=== PATIENT | female | born 1995 | race Hispanic/Latino ===

== ENCOUNTER 2019-05-18 21:27 | Emergency (ER) | payer SELFPAY ==
--- OUTSIDE RECORDS SUMMARY | 2019-05-18 21:30 | XMS REPORT ---
:1995 Author Organization [facility] t Address [address] [place] [address] [address] [place] [address] Care Team Providers Name Role Phone Unavailable Unavailable Unavailable Problems This patient has no known problems. Allergies, Adverse Reactions, Alerts This patient has no known allergies or adverse reactions. Medications This patient has no known medications.
--- NOTE | 2019-05-18 22:17 | EDPHYS ---
Physician Documentation [facility] Name: Tierney Bender Age: 23 yrs Sex: Female : 1995 Arrival Date: 05/18/2019 Time: 21:30 Bed Waiting Private MD: ED Physician Faustino Odell HPI: 05/17 22:13 This 23 yrs old Female presents to ER via Unassigned with complaints of Dental jmm pain. 22:13 Onset: The symptoms/episode began/occurred gradually, 2 day(s) ago. Duration: The jmm symptoms are continuous. Modifying factors: The symptoms are alleviated by nothing, the symptoms are aggravated by nothing. Associated signs and symptoms: Pertinent positives: swelling, Pertinent negatives: fever. This is a 23 year old female with no chronic medical conditions that presents to the ED with complaints of of right sided dental pain for the past 2 days. . 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 - Social history:: Smoking status: Patient denies any tobacco usage or history of. ROS: 22:13 Constitutional: Negative for fever, chills, and weight loss, Cardiovascular: Negative jmm for chest pain, palpitations, and edema, Respiratory: Negative for shortness of breath, cough, wheezing, and pleuritic chest pain. 22:13 ENT: Positive for dental pain. 22:13 All other systems are negative. Exam: 22:13 Constitutional: This is a well developed, well nourished patient who is awake, alert, jmm and in no acute distress. Head/Face: atraumatic. Eyes: EOMI, no conjunctival erythema appreciated 22:13 Neck: Trachea midline, Supple Chest/axilla: Normal chest wall appearance and motion. Cardiovascular: Regular rate and rhythm. No edema appreciated Respiratory: Normal respirations, no respiratory distress appreciated Abdomen/GI: Non distended, soft Back: Normal ROM Skin: General appearance color normal MS/ Extremity: Moves all extremities, no obvious deformities appreciated, no edema noted to the lower extremities Neuro: Awake and alert, normal gait Psych: Behavior is normal, Mood is normal, Patient is cooperative and pleasant 22:13 ENT: Dental exam: gum swelling, that is moderate, specifically in the lower right second bicuspid (#29) and lower right first molar (#30). 22:13 Neck: no submandibular swelling is appreciated. Vital Signs: 22:32 BP 125 / 77; Pulse 73; Resp 16 S; Temp 98.3(O); Pulse Ox 99% on R/A; Weight 63.5 kg bb (R); Pain 10/10; MDM: 22:12 [facility] 22:13 Data reviewed: vital signs, nurses notes. Counseling: I had a detailed discussion with [facility] the patient and/or guardian regarding: the historical points, exam findings, and any diagnostic results supporting the discharge/admit diagnosis, the need for outpatient follow up, to return to the emergency department if symptoms worsen or persist or if there are any questions or concerns that arise at home. ED course: Patient is alert and non toxic in appearance in the ED. I do not suspect ludwigs. Patient is advised to follow up with dentist and otherwise given strict return precautions. Patient understood and agrees with the plan of care. . Administered Medications: 22:19 Drug: Willard 5 mg-325 mg 1 tabs Route: PO; bb 22:31 Follow up: Response: Medication administered at discharge. Disposition: 05/18/19 22:16 Discharged to Home. Impression: Dental Pain. - Condition is Stable. - Discharge Instructions: Dental Pain. - Prescriptions for Peridex 0.12 % Mucous Membrane mouthwash - place 15 milliliter by MUCOUS MEMBRANE route 2 times per day after brushing teeth, swish in mouth for 30 seconds then spit out; 1 bottle. Amoxicillin 875 mg Oral Tablet - take 1 tablet by ORAL route every 12 hours for 10 days; 20 tablet. Ibuprofen 800 mg Oral Tablet - take 1 tablet by ORAL route every 8 hours As needed take with food; 30 tablet. - Medication Reconciliation Form, Thank You Letter, Antibiotic Education, Prescription Opioid Use form. - Follow up: Private Physician; When: 2 - 3 days; Reason: Recheck today's complaints, Continuance of care, Re-evaluation by your physician. Addendum: 05/21/2019 07:38 Co-signature as Attending Physician, Faustino Odell MD I agree with the assessment and c ward plan of care. Signatures: Faustino Odell MD MD cha Mickail, Joel, PA PA [facility] Fiordaliza Henry, RN RN bb Corrections: (The following items were deleted from the chart) 05/17 22:45 22:16 05/18/2019 22:16 Discharged to Home. Impression: Dental Pain. Condition is bb Stable. Forms are Medication Reconciliation Form, Thank You Letter, Antibiotic Education, Prescription Opioid Use. Follow up: Private Physician; When: 2 - 3 days; Reason: Recheck today's complaints, Continuance of care, Re-evaluation by your physician. [facility] 22:45 22:45 05/18/2019 22:16 Discharged to Home. Impression: Dental Pain. Condition is bb Stable. Discharge Instructions: Dental Pain. Prescriptions for Peridex 0.12 % Mucous Membrane mouthwash - place 15 milliliter by MUCOUS MEMBRANE route 2 times per day after brushing teeth, swish in mouth for 30 seconds then spit out; 1 bottle, Amoxicillin 875 mg Oral Tablet - take 1 tablet by ORAL route every 12 hours for 10 days; 20 tablet, Ibuprofen 800 mg Oral Tablet - take 1 tablet by ORAL route every 8 hours As needed take with food; 30 tablet. and Forms are Medication Reconciliation Form, Thank You Letter, Antibiotic Education, Prescription Opioid Use. Follow up: Private Physician; When: 2 - 3 days; Reason: Recheck today's complaints, Continuance of care, Re-evaluation by your physician. bb
[2019-05-18] MEDS ORDERED: HYDROCODONE/APAP 5/325 MG TAB ONE (22:27)
--- NOTE | 2019-05-18 22:46 | ER ---
Nurse's Notes [facility] Name: Tierney Bender Age: 23 yrs Sex: Female : 1995 Arrival Date: 05/18/2019 Time: 21:30 Bed Waiting Private MD: Diagnosis: Dental Pain Presentation: 05/17 22:32 Chief complaint: Patient states: pt is Hungarian speaking only used language line pt bb reports that it is her molars right lower jaw that is hurting 11/16 x 2 days. Coronavirus screen: Proceed with normal triage. Ebola Screen: No symptoms or risks identified at this time. Initial Sepsis Screen: Does the patient meet any 2 criteria? No. Patient's initial sepsis screen is negative. Does the patient have a suspected source of infection? No. Patient's initial sepsis screen is negative. Risk Assessment: Do you want to hurt yourself or someone else? Patient reports no desire to harm self or others. Onset of symptoms was May 16, 2019. 22:32 Method Of Arrival: Ambulatory 22:32 Acuity: MERVAT 5 bb 22:35 Note pt seen in triage by provider and discharged. 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 - Social history:: Smoking status: Patient denies any tobacco usage or history of. Screenin:44 Abuse screen: Denies threats or abuse. Nutritional screening: No deficits noted. bb Tuberculosis screening: No symptoms or risk factors identified. Fall Risk None identified. Assessment: 22:36 General: Appears in no apparent distress. Behavior is calm, cooperative. Pain: bb Complains of pain in lower right first molar (#30) and lower right second bicuspid (#29). Neuro: No deficits noted. Cardiovascular: No deficits noted. Respiratory: Airway is patent Respiratory effort is even, unlabored. GI: No signs and/or symptoms were reported involving the gastrointestinal system. EENT: Reports pain right lower jaw. Derm: Skin is pink, warm \T\ dry. Musculoskeletal: Circulation, motion, and sensation intact. Vital Signs: 22:32 BP 125 / 77; Pulse 73; Resp 16 S; Temp 98.3(O); Pulse Ox 99% on R/A; Weight 63.5 kg bb (R); Pain 10/10; ED Course: 21:30 Patient arrived in ED. cl3 21:32 Jaquan Caballero PA is PHCP. venancio 21:32 Faustino Odell MD is Attending Physician. jmm 22:34 Triage completed. bb 22:35 Arm band placed on. bb 22:44 Patient has correct armband on for positive identification. bb 22:44 No provider procedures requiring assistance completed. Patient did not have IV access bb during this emergency room visit. Administered Medications: 22:19 Drug: Comptche 5 mg-325 mg 1 tabs Route: PO; bb 22:31 Follow up: Response: Medication administered at discharge. bb Outcome: 22:16 Discharge ordered by . m 22:44 Discharged to home ambulatory. bb 22:44 Condition: stable 22:44 Discharge instructions given to patient, Instructed on discharge instructions, follow up and referral plans. medication usage, Demonstrated understanding of instructions, follow-up care, medications, Prescriptions given X 3. 22:45 Patient left the ED. bb Signatures: Jaquan Caballero PA PA jmm Ballard, Brenda, RN RN Eli Barry cl3
[2019-05-18 22:49] VITALS: BP 125/77; TEMP 98.3; O2SAT 99
== END 2019-05-18 22:45 | disposition home or self-care (01) ==
LOC: ER 21:27
DX: K08.89 Other specified disorders of teeth and supporting structures (principal)
CPT/HCPCS: 99283